=== PATIENT | female | born 1965 | race Caucasian/White ===

== ENCOUNTER → 2018-03-17 | Outpatient (CLI) | payer OTHER | END | disposition home or self-care (01) | LOC: CVU 16:06 | PROVIDERS: ATTEND Internal Medicine Cardiovascular Disease | DX: I08.1 Rheumatic disorders of both mitral and tricuspid valves (principal); I50.32 Chronic diastolic (congestive) heart failure; I10 Essential (primary) hypertension | CPT/HCPCS: 93306 ==

== ENCOUNTER 2019-10-05 15:07 | Outpatient (CLI) | payer OTHER ==
[2019-10-05 17:35] LABS: BASOPHILS # (AUTO) 0.02 x10^3/uL (0-0.1); BASOPHILS % (AUTO) 0 % (0-1); EOSINOPHILS # (AUTO) 0.14 x10^3/uL (0-0.4); EOSINOPHILS % (AUTO) 2 % (1-7); LYMPHOCYTES # (AUTO) 1.27 x10^3/uL (1-3.4); LYMPHOCYTES % (AUTO) 17 % (22-44); MD NO; MEAN CORPUSCULAR HEMOGLOBIN 35.2 pg (27.0-34.8); MEAN CORPUSCULAR HGB CONC 32.9 g/dL (32.4-35.8); MEAN CORPUSCULAR VOLUME 106.8 fL (80-100); MEAN PLATELET VOLUME 7.2 fL (7.4-10.4); MONOCYTES # (AUTO) 0.21 x10^3/uL (0.2-0.8); MONOCYTES % (AUTO) 3 % (2-9); NEUTROPHILS # (AUTO) 5.69 x10^3/uL (1.8-6.8); NEUTROPHILS % (AUTO) 78 % (42-75); PLATELET COUNT 157 x10^3/uL (130-400); RED BLOOD COUNT 3.54 x10^6/uL (3.82-5.3); RED CELL DISTRIBUTION WIDTH 16.5 % (9.6-15.2)
[2019-10-05 17:39] LABS: ALANINE AMINOTRANSFERASE 37 U/L (12-78); ALBUMIN 3.5 g/dL (3.4-5.0); ANION GAP 5 mmol/L (5-15); CALCIUM 9.2 mg/dL (8.5-10.1); CHLORIDE 105 mmol/L (98-107); CREATININE 1.06 mg/dL (0.55-1.02)
[2019-10-05 17:42] LABS: ALKALINE PHOSPHATASE 92 U/L (45-117); BILIRUBIN,TOTAL 0.7 mg/dL (0.2-1.0); TOTAL PROTEIN 7.5 g/dL (6.4-8.2)
== END 2019-10-05 23:59 | disposition home or self-care (01) ==
LOC: CVU 15:07
PROVIDERS: ATTEND Physician Assistant Medical
DX: I08.1 Rheumatic disorders of both mitral and tricuspid valves (principal); I42.0 Dilated cardiomyopathy; I11.0 Hypertensive heart disease with heart failure; I50.9 Heart failure, unspecified; Z98.82 Breast implant status
CPT/HCPCS: 36415; 80053; 85025; C8929; Q9957